=== PATIENT | female | born 1950 | race Caucasian/White ===

== ENCOUNTER → 2016-12-30 | Outpatient (CLI) | payer BC, OTHER ==
[~2016-12-30] MED LIST: CHOL100010 PO
--- NOTE | 2016-12-31 14:35 | MAMMOGRAPHY REPORT ---
BILATERAL DIGITAL SCREENING MAMMOGRAM TOMOSYNTHESIS WITH CAD: 12/30/2016 CLINICAL HISTORY: Asymptomatic. Personal history of breast cancer. TECHNIQUE: Breast tomosynthesis in addition to standard 2D mammography was performed. Current study was also evaluated with a Computer Aided Detection (CAD) system. COMPARISON: Comparison is made to exams dated: 12/21/2014 mammogram, 12/30/2013 mammogram, 12/30/2013 ul trasound, 12/17/2012 mammogram, 12/17/2011 mammogram, and 12/26/2015 mammogram - [facility]. BREAST COMPOSITION: There are scattered areas of fibroglandular density in both breasts. FINDINGS: There are stable postsurgical changes in the superior posterior left breast on the MLO vie w, with several surgical clips remaining in place. Benign coarse calcifications in the right breast. A stable, partially circumscribed 8 mm mass in the lower inner quadrant of the right breast is unch anged in size dating back to at least 2008, therefore likely benign. No new suspicious mass, archite ctural distortion or cluster of microcalcifications is seen. IMPRESSION: ACR BI-RADS CATEGORY 1: NEGATIVE There is no mammographic evidence of malignancy. A 1 year screening mammogram is recommended. The pa tient will receive written notification of the results. Approximately 10% of breast cancers are not detected with mammography. A negative mammographic report should not delay biopsy if a clinically suggestive mass is present. Estelle Mendoza M.D. ay/:12/30/2016 14:50:17 Radiology Assistant: Erica GEE(Cee)(M), [facility] letter sent: Normal 1/2 BI-RADS Code: ACR BI-RADS Category 1: Negative
== END | disposition home or self-care (01) ==
LOC: C.MAMM 08:50
PROVIDERS: ATTEND Family Medicine
DX: Z12.31 Encounter for screening mammogram for malignant neoplasm of breast (principal); Z85.3 Personal history of malignant neoplasm of breast

== ENCOUNTER → 2017-08-21 | Outpatient (CLI) | payer BC ==
--- NOTE | 2017-08-21 12:29 | DIAGNOSTIC IMAGING REPORT ---
Thyroid ultrasonography CLINICAL HISTORY: E04.1 multinodular thyroid gland COMPARISON STUDY: No previous studies for comparison. FINDINGS: Right lower thyroid measuring 13 x 43 x 18 mm. Multiple thyroid nodules are visualized. There is a mixed solid and cystic mid pole nodule measuring 20 x 11 x 16 mm. There is a mixed echogenicity lower pole nodule measuring 12 x 8 x 8 mm. This nodule is slightly irregular. There is a 5 x 4 x 3 mm upper pole nodule and a 6 x 6 x 3 mm mid pole nodule. The left lobe measures 20 x 37 x 13 mm. There are multiple tiny left lobe nodules, the largest of which is a hypoechoic 6 x 5 x 3 mm mid pole nodule. This nodule is somewhat irregular. IMPRESSION: Multinodular thyroid gland. Dominant nodules including a mixed solid and cystic right lobe nodule measuring 20 x 16 x 11 mm, a slightly irregularly marginated mixed echogenicity lower pole right lobe nodule measuring 12 x 8 x 8 mm, and an irregularly marginated hypoechoic lower pole left lobe nodule measuring 6 x 5 x 3 mm. In the absence of prior studies demonstrating stability, thyroid FNA should be considered in follow-up. Electronically signed by: Carlos Rosales M.D. 08/21/2017 12:27 PM Dictated Date/Time: 08/21/2017 12:18 PM
== END | disposition home or self-care (01) ==
LOC: C.ULTR 11:28
PROVIDERS: ATTEND Physician Assistant Medical
DX: E04.1 Nontoxic single thyroid nodule (principal)

== ENCOUNTER → 2017-08-25 | Outpatient (CLI) | payer BC ==
[2017-08-25 12:22] LABS: BASO % 0.9 %; BASO ABS # 0.04 K/uL (0-0.2); EOS % 4.5 %; EOS ABS # 0.21 K/uL (0-0.5); HEMATOCRIT 40.5 % (37-47); HEMOGLOBIN 13.9 g/dL (12.0-16.0); IG# 0.01 K/uL (0.00-0.02); LYMPH % 29.4 %; LYMPH ABS # 1.38 K/uL (1.2-3.4); MEAN CELL VOLUME 85.4 fL (80-100); MEAN CORPUSCULAR HEMOGLOBIN 29.3 pg (25-34); MEAN CORPUSCULAR HGB CONC 34.3 g/dl (32-36); MEAN PLATELET VOLUME 9.7 fL (7.4-10.4); MONO % 9.2 %; MONO ABS # 0.43 K/uL (0.11-0.59); NEUT % 55.8 %; NEUT ABS # 2.62 K/uL (1.4-6.5); PLATELET COUNT 215 K/uL (130-400); RED CELL DISTRIBUTION WIDTH SD 40.8 fL (36.4-46.3); WHITE BLOOD COUNT 4.69 K/uL (4.8-10.8)
--- NOTE | 2017-08-25 12:27 | DIAGNOSTIC IMAGING REPORT ---
ULTRASOUND-GUIDED FINE-NEEDLE ASPIRATION of 2 RIGHT THYROID NODULE HISTORY: Right thyroid nodules. THYROID NODULES COMPARISON: Thyroid ultrasound 08/21/2017. PROCEDURE: Written informed consent was obtained. The neck was prepped and draped in the usual sterile fashion. 1% lidocaine was used for local anesthesia. A total of 2 passes using a 25-gauge needle were made through both dominant anterior and posterior nodules within the lower pole under ultrasound guidance. Specimens were given to the on-site pathologist who determined adequate tissue for diagnosis. The patient tolerated the procedure well. There were no immediate complications. IMPRESSION: Successful ultrasound-guided fine-needle aspiration of a the 2 dominant right thyroid nodules. Electronically signed by: Israel Ortega M.D. 08/25/2017 12:26 PM Dictated Date/Time: 08/25/2017 12:25 PM
[2017-08-25 12:45] LABS: ALBUMIN 3.6 gm/dl (3.4-5.0); ALT/SGPT 27 U/L (12-78); AST/SGOT 19 U/L (15-37); BLOOD UREA NITROGEN 11 mg/dl (7-18); CARBON DIOXIDE 27 mmol/L (21-32); CHOLESTEROL 230 mg/dl (0-200); CREATININE 0.88 mg/dl (0.60-1.20); GLUCOSE 88 mg/dl (70-99); POTASSIUM 3.8 mmol/L (3.5-5.1); SODIUM 138 mmol/L (136-145); TOTAL PROTEIN 7.2 gm/dl (6.4-8.2)
[2017-08-25 12:55] LABS: ALKALINE PHOSPHATASE 87 U/L (45-117); LDL CHOLESTEROL CALCULATED 132 mg/dl
== END | disposition home or self-care (01) ==
LOC: C.ULTR 10:13
PROVIDERS: ATTEND Physician Assistant Medical
DX: Z00.00 Encounter for general adult medical examination without abnormal findings (principal); E04.2 Nontoxic multinodular goiter; E78.5 Hyperlipidemia, unspecified

== ENCOUNTER → 2018-01-05 | Outpatient (CLI) | payer BC ==
--- NOTE | 2018-01-06 06:57 | MAMMOGRAPHY REPORT ---
BILATERAL DIGITAL SCREENING MAMMOGRAM TOMOSYNTHESIS WITH CAD: 01/05/2018 CLINICAL HISTORY: Routine screening. TECHNIQUE: The study was acquired using full field digital technology and interpreted from soft copy. Breast tomosynthesis in addition to standard 2D mammography was performed. Current study was also ev aluated with a Computer Aided Detection (CAD) system. COMPARISON: Comparison is made to exams dated: 12/30/2016 mammogram, 12/26/2015 mammogram, 12/21/2014 ana mogram, 12/20/2013 mammogram, 12/17/2012 mammogram, and 12/17/2011 mammogram - [facility] BREAST COMPOSITION: There are scattered areas of fibroglandular density in both breasts. FINDINGS: There is expected architectural distortion and surgical clips in the upper outer posterior left breast, at the site of prior lumpectomy. A stable benign 9 mm mass in the lower inner right carola ast. Benign coarse calcification also in the central right breast. No suspicious mass, architectural distortion or cluster of microcalcifications is seen. IMPRESSION: ACR BI-RADS CATEGORY 1: NEGATIVE There is no mammographic evidence of malignancy. A 1 year screening mammogram is recommended.( [id number]) The patient will receive written notification of the results. Some breast cancers are not detected with mammography. A negative mammographic report should not juanita y biopsy if a clinically suggestive mass is present. Estelle Mendoza M.D. ay/:01/05/2018 14:30:23 Web Content Specialist: RT Martin(Cee)(Gordo), [facility] letter sent: Normal 1/2 BI-RADS Code: ACR BI-RADS Category 1: Negative
== END | disposition home or self-care (01) ==
LOC: C.MAMM 08:46
PROVIDERS: ATTEND Family Medicine Adult Medicine
DX: Z12.31 Encounter for screening mammogram for malignant neoplasm of breast (principal); Z85.3 Personal history of malignant neoplasm of breast